=== PATIENT | female | born 1940 | race Caucasian/White ===

== ENCOUNTER 2021-10-28 12:19 | Inpatient (IN) | payer MEDICARE ==
[2021-10-28 12:54] VITALS: BMI 29.7
[2021-10-28] MEDS ORDERED: Acetaminophen 325 MG TAB PO PRN (14:56)
[2021-10-28] MEDS ORDERED: HumaLOG 300 UNITS/3 ML VIAL SC PRN (15:00)
[2021-10-28] MEDS ORDERED: Dextrose 50% Abboject 50 ML SYRINGE SLOW IVP PRN (15:00)
[2021-10-28] MEDS ORDERED: Dextrose 5% in Water 1,000 ML IV PRN (15:00)
[2021-10-28] MEDS: HumaLOG 300 UNITS/3 ML VIAL SC PRN (17:45)
[2021-10-28 18:04] LABS: Bilirubin Neg (Negative); Blood, Urine Negative (Negative); Clarity Clear (Clear); Glucose, Urine (Dipstick) >=1000 mg/dL (Negative); Ketone, Urine Negative (Negative); Leukocyte Negative (Negative); Nitrite Negative (Negative); Protein, Urine (Dipstick) Negative (Neg-Trace); Specific Gravity, Urine 1.015 (1.002-1.036); Urobilinogen Normal mg/dL (Less than 2)
[2021-10-28 18:21] LABS: RBC/HPF None Seen HPF (0-3); Urine Culture Reflex No No
[2021-10-28] MEDS: Carvedilol 12.5 MG TAB PO SCH (20:52)
[2021-10-28] MEDS ORDERED: Gabapentin 100 MG CAP PO SCH (21:00)
[2021-10-29] MEDS ORDERED: hydrALAZINE 25 MG TAB PO SCH (01:15)
[2021-10-29 04:37] LABS: #Basophils 0.1 10x3/uL (0.0-0.2); #Eosinphils 0.2 10x3/uL (0.0-0.5); #Monocytes 0.5 10x3/uL (0.0-1.1); #Neutrophils 3.1 10x3/uL (1.5-8.4); %Basophils 0.8 % (0.0-2.0); %Eosinophils 2.4 % (0.0-6.0); %Lymphocytes 39.8 % (18.0-47.0); %Monocytes 7.4 % (0.0-10.0); %Neutrophils 49.3 % (40.0-75.0); Hemoglobin 12.6 g/dL (12.0-15.5); Mean Corpuscular Hemoglobin 30.2 pg (27.0-33.0); Mean Platelet Volume 10.5 fl (7.4-10.4); Platelet Count 196 10x3/uL (150-450); RBC Distribution Width 14.4 % (11.5-14.5); Red Blood Cell (RBC) Count 4.17 10x6/uL (3.90-5.03); White Blood Cell (WBC) Count 6.2 10x3/uL (3.5-10.5)
[2021-10-29 04:58] LABS: Anion Gap 12 mmol/L (10-20); BUN (Urea Nitrogen) 21 mg/dL (9.8-20.1); Calc. Creatinine Clearance 42 mL/min (70-130); Calcium 9.9 mg/dL (7.8-10.44); Carbon Dioxide 22 mmol/L (23-31); Cardiac Risk 4.8 (Less than 4.5); Chloride 107 mmol/L (98-107); Cholesterol 235 mg/dl (< 200 Desired); Estimated GFR 49; Glucose 153 mg/dL (83-110); HDL Cholesterol 49 mg/dL (>60 Neg Risk); LDL Cholesterol, Calculated 142 mg/dL; Potassium 4.3 mmol/L (3.5-5.1); Sodium 137 mmol/L (136-145); Triglycerides 219 mg/dL (Less than 150)
[2021-10-29] MEDS ORDERED: Levothyroxine Sodium 50 MCG TAB PO SCH (06:00)
[2021-10-29] MEDS ORDERED: PARoxetine 20 MG TAB PO SCH (09:00)
[2021-10-29] MEDS ORDERED: Estradiol 1 MG TAB PO SCH (09:00)
[2021-10-29] MEDS ORDERED: Enoxaparin Sodium 30 MG/0.3 ML SYRINGE SC SCH (09:00)
[2021-10-29] MEDS: Carvedilol 12.5 MG TAB PO SCH (09:20)
[2021-10-29] MEDS: HumaLOG 300 UNITS/3 ML VIAL SC PRN (14:06)
[2021-10-29 17:27] VITALS: BP 153/65; TEMP 98
== END 2021-10-29 17:28 | disposition home or self-care (01) | DRG 684 ==
LOC: CSHTELE 12:19
PROVIDERS: ADMIT Hospitalist; ATTEND Hospitalist
DX: N17.9 Acute kidney failure, unspecified (principal); R55 Syncope and collapse; E03.9 Hypothyroidism, unspecified; I10 Essential (primary) hypertension; K21.9 Gastro-esophageal reflux disease without esophagitis; E78.5 Hyperlipidemia, unspecified; E11.649 Type 2 diabetes mellitus with hypoglycemia without coma; I65.23 Occlusion and stenosis of bilateral carotid arteries; Z20.822 Contact with and (suspected) exposure to COVID-19; Z88.0 Allergy status to penicillin; Z88.2 Allergy status to sulfonamides; Z79.899 Other long term (current) drug therapy; Z79.4 Long term (current) use of insulin
CPT/HCPCS: 36415; 36416; 80048; 80061; 81001; 82533; 85025; 93306; 93880; 94760; J1650; J1815; U0003; U0005